=== PATIENT | male | born 1955 | race Caucasian/White ===

== ENCOUNTER 2017-03-03 05:36 | Day surgery (SDC) | payer OTHER ==
[~2017-03-03] VITALS: Ht 175.3 cm; Wt 75.7 kg
[~2017-03-03 05:36] MED LIST: ADVIL200 MG PO; ALLEGRA ALLERG180 MG PO; ERYTHROMYC1 APPLICAT BOTH EYES; FEXOFENADINE H180 MG PO; HUMALOG100 UNIT/1 SC; HUMALOG100 UNIT/2 SC; LANTUS 10100 UNITS/ SC; LISINOPRIL2.5 MG PO; MEN'S 50+ DAIL1 EACH PO; MIRALAX17 GM PO; MIRALAX255 GM PO; OSTEO BI-FLEX1 EAC1 PO; PRAVACHOL80 MG PO; PROTONIX20 MG PO; STOOL SOFTENER100 M1 PO; TOUJEO SOL300 UNIT/1 SC; VITAMIN C1000 MG PO; VITAMIN D-32000 UNI1 PO
[2017-03-03 06:53] VITALS: BP 127/78
[2017-03-03 07:04] LABS: POINT-OF-CARE METER ID UU14174212
[2017-03-03] MEDS ORDERED: ULTRAM50 MG PO (08:32)
[2017-03-03 09:08] LABS: POINT-OF-CARE METER ID UU13113675
[2017-03-03 09:15] VITALS: BP 136/84
== END 2017-03-03 10:20 | disposition home or self-care (01) ==
LOC: SDC
PROVIDERS: Surgery
PROC: 0JBF0ZZ Excision of Left Upper Arm Subcutaneous Tissue and Fascia, Open Approach (ICD-10-PCS; principal; 2017-03-03)
DX: D17.22 Benign lipomatous neoplasm of skin and subcutaneous tissue of left arm (principal); E11.9 Type 2 diabetes mellitus without complications; K21.9 Gastro-esophageal reflux disease without esophagitis; E78.5 Hyperlipidemia, unspecified; Z79.4 Long term (current) use of insulin; Z88.0 Allergy status to penicillin; Z88.2 Allergy status to sulfonamides
CPT/HCPCS: 82948; 88304; J2250; J3010

== ENCOUNTER 2017-03-25 00:46 | Emergency (ER) | payer OTHER ==
[~2017-03-25] VITALS: Ht 175.3 cm; Wt 79.7 kg
[~2017-03-25 00:46] MED LIST changes: -HUMALOG100 UNIT/2 SC; +MEN'S 50 PLUS1 EACH PO; -MEN'S 50+ DAIL1 EACH PO; +ULTRAM50 MG PO; -VITAMIN D-32000 UNI1 PO; +VITAMIN D32000 UNI1 PO
[2017-03-25 01:32] LABS: BASOPHIL (%) 0.2 % (0-1); EOSINOPHIL (%) 1.7 % (0-5); EOSINOPHIL COUNT 0.1 K/uL (0-0.3); HEMATOCRIT 40.6 % (38.0-50.0); HEMOGLOBIN 13.5 G/DL (12.5-16.6); IMMATURE GRANULOCYTE (%) 0.4 % (0.0-0.7); LYMPHOCYTE (%) 4.9 % (15-42); LYMPHOCYTE COUNT 0.4 K/uL (1.0-2.8); MCH 29.3 PG (29.0-34.0); MCHC 33.3 G/DL (30.0-36.0); MCV 88.3 FL (86-99); MONOCYTE (%) 5.3 % (3-12); MONOCYTE COUNT 0.4 K/uL (0-0.8); NEUTROPHIL (%) 87.5 % (45-76); NEUTROPHIL COUNT 7.1 K/uL (1.8-6.4); PLATELET COUNT 156 K/uL (156-360); RBC DIS.WIDTH-SD 42.4 % (39-53); WHITE BLOOD COUNT 8.2 K/uL (4.1-10.2)
[2017-03-25 01:46] LABS: ALBUMIN 3.5 g/dL (3.2-4.8); CHLORIDE 101 mEq/L (99-109); POTASSIUM 4.3 mEq/L (3.7-5.4); SODIUM 133 mEq/L (136-147)
[2017-03-25 01:47] LABS: MAGNESIUM 1.8 mg/dL (1.3-2.7)
[2017-03-25 01:49] LABS: GLUCOSE 340 mg/dL (70-99)
[2017-03-25 01:52] LABS: ALKALINE PHOSPHATASE 79 IU/L (3-129); GFR ESTIMATE (CALCULATED) > 59 mL/min/ (58.99-99999)
[2017-03-25 01:53] LABS: UREA NITROGEN (BUN) 17 mg/dL (9-23)
[2017-03-25 01:54] LABS: AST (GOT) 22 IU/L (2-34)
[2017-03-25 01:55] LABS: ALT (GPT) 26 IU/L (3-49)
[2017-03-25 02:01] LABS: TROP-I INTERPRETATION NEGATIVE; TROPONIN-I < 0.01 ng/mL (0.0-0.30)
[2017-03-25 03:57] LABS: APPEARANCE CLEAR ((CLEAR)); BILIRUBIN NEGATIVE; BLOOD NEGATIVE; COLOR STRAW ((YELLOW)); GLUCOSE (STRIP) >=500; KETONES 5; LEUKOCYTES NEGATIVE; NITRITE NEGATIVE; PROTEIN (STRIP) NEGATIVE; SPECIFIC GRAVITY 1.013 (1.000-1.030); UCUL ADDED? NO; UROBILINOGEN 0.2 MG/DL (0.2-1.0)
[2017-03-25] MEDS ORDERED: REGLAN10 MG PO (04:35)
[2017-03-25] MEDS ORDERED: ZOFRAN ODT4 MG PO (04:35)
[2017-03-25] MEDS ORDERED: COMPAZINE25 M1 PR (04:35)
[2017-03-25 05:47] LABS: TROP-I INTERPRETATION NEGATIVE; TROPONIN-I 0.02 ng/mL (0.0-0.30)
[2017-03-25] MEDS ORDERED: VITAMIN B-650 MG PO (08:50)
[2017-03-25] MEDS ORDERED: MAGNESIUM200 MG PO (08:50)
[2017-03-25] MEDS ORDERED: TURMERIC500 M2 PO (08:50)
[2017-03-25] MEDS ORDERED: FISH OIL 1,0001 EA12 PO (08:50)
[2017-03-25 11:37] VITALS: BP 143/80
== END 2017-03-25 11:40 | disposition home or self-care (01) ==
LOC: EME 00:46
PROVIDERS: Emergency Medicine
DX: K52.9 Noninfective gastroenteritis and colitis, unspecified (principal); E10.65 Type 1 diabetes mellitus with hyperglycemia; E86.0 Dehydration; R55 Syncope and collapse; Z79.4 Long term (current) use of insulin; I10 Essential (primary) hypertension; E78.00 Pure hypercholesterolemia, unspecified; K21.9 Gastro-esophageal reflux disease without esophagitis; Z88.0 Allergy status to penicillin
CPT/HCPCS: 80053; 81003; 82948; 83605; 83735; 84484; 85025; 93005; 99281; 99283; J2405; J2765; J7030